=== PATIENT | female | born 1950 | race Caucasian/White ===

== ENCOUNTER 2017-01-20 04:50 | Emergency (ER) | payer OTHER ==
[~2017-01-20] VITALS: Ht 154.9 cm; Wt 53.7 kg
[~2017-01-20 04:50] MED LIST: CALC-141 PO; CETI10TA24 PO; DULO30CA2 PO; ESOM40CA PO; IRON PO; LEVO125T PO; LORA1TAB PO; LOSA100T6 PO; MULTIVITAMIN PO; ZOLE5INF IV; [UNRECOGNIZED DRUG - OTHER] PO
[2017-01-20] MEDS ORDERED: MORPHINE SULFATE 4 MG/ML, 1ML IVPush PRN (05:30)
[2017-01-20] MEDS ORDERED: ONDANSETRON 2MG/ML, 2ML IVPush ONE (05:30)
[2017-01-20] MEDS ORDERED: SODIUM CHLORIDE 0.9% 1,000ML IVBOLUS ONE (05:30)
[2017-01-20] MEDS ORDERED: SODIUM CHLORIDE FLUSH 10ML SYR IVF ONE (05:30)
[2017-01-20] MEDS ORDERED: OMNIPAQUE 350 MG/ML, 100ML BOTTLE ONE (05:30)
[2017-01-20] MEDS ORDERED: FAMOTIDINE 20 MG/2 ML IVP ONE (05:30)
[2017-01-20] MEDS ORDERED: ONDANSETRON 2MG/ML, 2ML ONE (05:53)
[2017-01-20] MEDS ORDERED: MORPHINE SULFATE 4 MG/ML, 1ML ONE (05:54)
[2017-01-20] MEDS ORDERED: FAMOTIDINE 20 MG/2 ML ONE (05:54)
[2017-01-20 06:12] VITALS: BP 166/84
[2017-01-20 06:20] LABS: ASPARTATE AMINO TRANSFERASE 15 U/L (15-37); BLOOD UREA NITROGEN 13 mg/dL (7-18)
== END 2017-01-20 08:07 | disposition home or self-care (01) ==
LOC: ED 08:00
DX: K29.00 Acute gastritis without bleeding (principal); F17.210 Nicotine dependence, cigarettes, uncomplicated; Z98.84 Bariatric surgery status
CPT/HCPCS: 36415; 74177; 80053; 81003; 83690; 85025; 93005; 96361; 96374; 96375; 99285; J2405; J7030; Q9967; S0028

== ENCOUNTER → 2018-06-20 | Outpatient (CLI) | payer MEDICARE ==
[~2018-06-20] MED LIST changes: -LOSA100T6 PO; +LOSA100T7 PO
== END | disposition home or self-care (01) ==
LOC: CFH 11:33
PROVIDERS: ATTEND Internal Medicine Gastroenterology
DX: I87.8 Other specified disorders of veins (principal); K59.00 Constipation, unspecified; R11.0 Nausea; R14.0 Abdominal distension (gaseous); Z86.010 Personal history of colon polyps; Z98.84 Bariatric surgery status
CPT/HCPCS: 74018

== ENCOUNTER → 2018-07-23 | Outpatient (CLI) | payer MEDICARE | END | disposition home or self-care (01) | LOC: CFH 09:21 | PROVIDERS: ATTEND Internal Medicine | DX: Z12.31 Encounter for screening mammogram for malignant neoplasm of breast (principal); Z85.3 Personal history of malignant neoplasm of breast | CPT/HCPCS: 77067 ==

== ENCOUNTER → 2019-02-18 | Outpatient (CLI) | payer MEDICARE ==
[~2019-02-18] MED LIST changes: +LOSA100T14 PO; -LOSA100T7 PO
== END | disposition home or self-care (01) ==
LOC: CFH 12:46
DX: Z12.2 Encounter for screening for malignant neoplasm of respiratory organs (principal); R91.8 Other nonspecific abnormal finding of lung field; F17.210 Nicotine dependence, cigarettes, uncomplicated
CPT/HCPCS: G0297

== ENCOUNTER 2019-09-12 20:41 | Emergency (ER) | payer MEDICARE ==
[~2019-09-12] VITALS: Ht 154.9 cm; Wt 50.7 kg
--- NOTE | 2019-09-12 22:24 | NUR ---
PT C/O COUGHING X3 MONTHS AND HX BRONCHTIS. CURRENT SMOKER. CONNECTED TO MONITORING. CALL LIGHT IN REACH. AWAITING ORDERS AT THIS TIME.
[2019-09-12] MEDS ORDERED: ALBUTEROL/IPRATROPIUM 2.5MG/0.5MG, 3 ML ONE (22:44)
[2019-09-12] MEDS ORDERED: ALBUTEROL/IPRATROPIUM 2.5MG/0.5MG, 3 ML NPPB ONE (23:00)
[2019-09-12] MEDS ORDERED: ALBUTEROL SULFATE 2.5 MG/3 ML NPPB PRN (23:00)
--- NOTE | 2019-09-12 23:00 | NUR ---
MEDS ADMIN PER NOV. RT AT BEDSIDE.
[2019-09-12 23:01] LABS: BASOPHILS # (AUTO) 0.02 x10^3/uL (0-0.1); BASOPHILS % (AUTO) 1 % (0-1); EOSINOPHILS # (AUTO) 0.15 x10^3/uL (0-0.4); EOSINOPHILS % (AUTO) 3 % (1-7); LYMPHOCYTES # (AUTO) 1.84 x10^3/uL (1-3.4); LYMPHOCYTES % (AUTO) 41 % (22-44); MD NO; MEAN CORPUSCULAR HEMOGLOBIN 30.7 pg (27.0-34.8); MEAN CORPUSCULAR HGB CONC 33.3 g/dL (32.4-35.8); MEAN CORPUSCULAR VOLUME 92.4 fL (80-100); MEAN PLATELET VOLUME 7.4 fL (7.4-10.4); MONOCYTES # (AUTO) 0.25 x10^3/uL (0.2-0.8); MONOCYTES % (AUTO) 6 % (2-9); NEUTROPHILS # (AUTO) 2.25 x10^3/uL (1.8-6.8); NEUTROPHILS % (AUTO) 50 % (42-75); PLATELET COUNT 278 x10^3/uL (130-400); RED BLOOD COUNT 4.98 x10^6/uL (3.82-5.3); RED CELL DISTRIBUTION WIDTH 14.4 % (9.6-15.2)
[2019-09-12 23:14] VITALS: BP 145/67
[2019-09-12 23:14] LABS: ALBUMIN 3.6 g/dL (3.4-5.0); ANION GAP 5 mmol/L (5-15); CALCIUM 8.8 mg/dL (8.5-10.1); CHLORIDE 111 mmol/L (98-107); CREATININE 0.59 mg/dL (0.55-1.02)
[2019-09-12 23:18] LABS: TROPONIN I < 0.015 ng/mL (0.000-0.045)
--- NOTE | 2019-09-12 23:32 | NUR ---
ALL RESULTS ARE BACK AT THIS TIME. CHART UP FOR RECHECK.
--- NOTE | 2019-09-12 23:52 | NUR ---
Patient given discharge instructions and they have confirmed that they understand the instructions. Patient ambulatory with steady gait. Belongings with patient.
== END 2019-09-12 23:53 | disposition home or self-care (01) ==
LOC: ED 22:53
DX: J44.9 Chronic obstructive pulmonary disease, unspecified (principal); I10 Essential (primary) hypertension; E03.9 Hypothyroidism, unspecified
CPT/HCPCS: 36415; 71045; 80048; 82040; 83605; 84145; 84484; 85025; 87040; 93005; 94640; 99284; J7512; J7620

== ENCOUNTER → 2020-04-26 | Outpatient (CLI) | payer MEDICARE ==
[~2020-04-26] MED LIST changes: -CETI10TA24 PO; +CETI10TA26 PO
== END | disposition home or self-care (01) ==
LOC: CFH 08:11
PROVIDERS: ATTEND Internal Medicine
DX: I65.23 Occlusion and stenosis of bilateral carotid arteries (principal); M81.0 Age-related osteoporosis without current pathological fracture
CPT/HCPCS: 77080; 93880

== ENCOUNTER → 2020-08-19 | Outpatient (CLI) | payer MEDICARE ==
[~2020-08-19] MED LIST changes: -CETI10TA26 PO; +CETI10TA76 PO
== END | disposition home or self-care (01) ==
LOC: CFH 15:22
PROVIDERS: ATTEND Internal Medicine
DX: C50.912 Malignant neoplasm of unspecified site of left female breast (principal); N63.21 Unspecified lump in the left breast, upper outer quadrant
CPT/HCPCS: 76642; 77066; G0279

== ENCOUNTER 2021-01-24 09:33 | Outpatient (CLI) | payer MEDICARE ==
[~2021-01-24 09:33] MED LIST changes: +REGADENOSON 0.4 MG/5 ML SYRINGE ONE
== END 2021-01-24 23:59 | disposition home or self-care (01) ==
LOC: CFH 09:33
PROVIDERS: ATTEND Internal Medicine Cardiovascular Disease
DX: I08.3 Combined rheumatic disorders of mitral, aortic and tricuspid valves (principal); I11.9 Hypertensive heart disease without heart failure; R07.89 Other chest pain; R06.02 Shortness of breath; R00.2 Palpitations
CPT/HCPCS: 78452; 93017; 93306; A9502; J2785